=== PATIENT | male | born 1960 | race Caucasian/White ===

== ENCOUNTER → 2017-12-26 09:14 | Outpatient (CLI) | payer OTHER, SELFPAY ==
[2017-12-26 10:46] LABS: Cholesterol 204 mg/dL (140-199); HDL Cholesterol 49 mg/dL (40-60); LDL Cholesterol Calculated 124 mg/dL (<100); Triglycerides 156 mg/dL (35-150)
== END ==
PROVIDERS: PCP Physician Assistant; Visit Provider Physician Assistant
DX: E78.2 Mixed hyperlipidemia (principal); Z86.711 Personal history of pulmonary embolism; D68.51 Activated protein C resistance
CPT/HCPCS: 36415; 80061; 85610

== ENCOUNTER → 2018-01-02 07:38 | Outpatient (CLI) | payer OTHER, SELFPAY ==
[2018-01-02 08:01] LABS: INR 1.4 (0.9-1.3); Prothrombin Time 15.5 SECONDS (10.1-12.7)
== END ==
PROVIDERS: PCP Physician Assistant; Visit Provider Physician Assistant
DX: Z86.711 Personal history of pulmonary embolism (principal)
CPT/HCPCS: 36415; 85610

== ENCOUNTER → 2018-01-19 14:04 | Outpatient (CLI) | payer OTHER, SELFPAY ==
[2018-01-19 16:31] LABS: Prothrombin Time 54.9 SECONDS (10.1-12.7)
[2018-01-19 16:55] LABS: INR 4.9 (0.9-1.3)
== END ==
PROVIDERS: Family Provider Physician Assistant; PCP Physician Assistant; Visit Provider Physician Assistant
DX: D68.51 Activated protein C resistance (principal); Z86.711 Personal history of pulmonary embolism
CPT/HCPCS: 36415; 85610

== ENCOUNTER → 2018-01-26 07:37 | Outpatient (CLI) | payer OTHER, SELFPAY ==
[2018-01-26 09:31] LABS: INR 2.1 (0.9-1.3); Prothrombin Time 23.2 SECONDS (10.1-12.7)
== END ==
PROVIDERS: Family Provider Physician Assistant; PCP Physician Assistant; Visit Provider Physician Assistant
DX: Z86.711 Personal history of pulmonary embolism (principal); D68.51 Activated protein C resistance
CPT/HCPCS: 36415; 85610

== ENCOUNTER → 2018-03-09 12:04 | Outpatient (CLI) | payer OTHER, SELFPAY ==
[2018-03-09 12:40] LABS: INR 3.5 (0.9-1.3); Prothrombin Time 38.4 SECONDS (10.1-12.7)
== END ==
PROVIDERS: Family Provider Physician Assistant; PCP Physician Assistant; Visit Provider Physician Assistant
DX: D68.51 Activated protein C resistance (principal); Z86.711 Personal history of pulmonary embolism
CPT/HCPCS: 36415; 85610

== ENCOUNTER → 2018-04-03 07:11 | Outpatient (CLI) | payer OTHER, SELFPAY ==
[2018-04-03 08:20] LABS: INR 2.1 (0.9-1.3); Prothrombin Time 22.7 SECONDS (10.1-12.7)
== END ==
PROVIDERS: PCP Physician Assistant; Visit Provider Physician Assistant
DX: D68.51 Activated protein C resistance (principal); Z86.711 Personal history of pulmonary embolism
CPT/HCPCS: 36415; 85610

== ENCOUNTER → 2018-06-05 07:04 | Outpatient (CLI) | payer OTHER, SELFPAY ==
[2018-06-05 08:00] LABS: Cholesterol 191 mg/dL (140-199); HDL Cholesterol 47 mg/dL (40-60); LDL Cholesterol Calculated 101 mg/dL (<100); Triglycerides 214 mg/dL (35-150)
== END ==
PROVIDERS: PCP Physician Assistant; Visit Provider Physician Assistant
DX: Z12.5 Encounter for screening for malignant neoplasm of prostate (principal); E78.2 Mixed hyperlipidemia
CPT/HCPCS: 36415; 80061; G0103

== ENCOUNTER → 2018-07-10 14:27 | Outpatient (CLI) | payer OTHER, SELFPAY ==
[2018-07-10 15:25] LABS: INR 1.2 (0.9-1.3); Prothrombin Time 14.1 SECONDS (10.1-12.7)
== END ==
PROVIDERS: PCP Physician Assistant; Visit Provider Physician Assistant
DX: D68.51 Activated protein C resistance (principal); Z86.711 Personal history of pulmonary embolism
CPT/HCPCS: 36415; 85610

== ENCOUNTER → 2018-07-24 16:04 | Outpatient (CLI) | payer OTHER, SELFPAY ==
[2018-07-24 17:41] LABS: INR 1.5 (0.9-1.3); Prothrombin Time 17.4 SECONDS (10.1-12.7)
== END ==
PROVIDERS: PCP Physician Assistant; Visit Provider Physician Assistant
DX: D68.51 Activated protein C resistance (principal); Z86.711 Personal history of pulmonary embolism
CPT/HCPCS: 36415; 85610

== ENCOUNTER → 2018-07-31 07:18 | Outpatient (CLI) | payer OTHER, SELFPAY ==
[2018-07-31 09:22] LABS: Prothrombin Time 23.1 SECONDS (10.1-12.7)
== END ==
PROVIDERS: PCP Physician Assistant; Visit Provider Physician Assistant
DX: D68.51 Activated protein C resistance (principal); Z86.711 Personal history of pulmonary embolism
CPT/HCPCS: 36415; 85610

== ENCOUNTER → 2018-08-07 07:19 | Outpatient (CLI) | payer OTHER, SELFPAY ==
[2018-08-07 08:59] LABS: INR 2.3 (0.9-1.3); Prothrombin Time 26.9 SECONDS (10.1-12.7)
== END ==
PROVIDERS: PCP Physician Assistant; Visit Provider Physician Assistant
DX: D68.51 Activated protein C resistance (principal); Z86.711 Personal history of pulmonary embolism
CPT/HCPCS: 36415; 85610

== ENCOUNTER 2018-08-09 18:38 | Emergency (ER) | payer OTHER, SELFPAY ==
[2018-08-09 18:42] VITALS: BP 154/96; PULSE 85; RESP 14; TEMP 36.3; O2SAT 98
--- NOTE | 2018-08-09 18:46 | DI.RAD.S_ITS ---
PROCEDURE: XR ANKLE LT MIN 3V INDICATIONS: slip/fall, lt ankle pain/swelling, heard a pop TECHNIQUE: 3 views of the ankle were acquired. COMPARISON: None. FINDINGS: Bones: Lateral malleolus fracture at the level of the syndesmosis. There is also cortical irregularity at the tip of the medial malleolus. Plantar and posterior calcaneal spurring. Soft tissues: Overlying soft tissue swelling IMPRESSION: Lateral malleolar fracture with overlying soft tissue swelling. Possible fracture at the tip of the medial malleolus although technically indeterminate. Please correlate point tenderness. Dictated by: Rogerio Brennan M.D. on 08/09/2018 at 19:38 Approved by: Rogerio Brennan M.D. on 08/09/2018 at 19:40
--- NOTE | 2018-08-09 19:42 | ED.LOWEXIN ---
HPI - Extremity Injury (Lower) <Rivka Beatty PA-C - Last Filed: 08/09/18 22:02> General Chief Complaint: Extremity Injury, Lower Stated Complaint: slipped and fall left ankle heard a snap Time Seen by Provider: 08/09/18 19:04 Source: patient Mode of arrival: ambulatory Limitations: no limitations History of Present Illness HPI Narrative: this 57-year-old male was out walking this evening when he slipped on the ice and snow in his left foot bent back and behind him as he fell. He heard a snap and has had pain and swelling on the outside of the ankle since then. He states that he was able to get up and hobble home but has a lot of pain with weight-bearing. He denies any pain elsewhere in the leg. He denies any other injury, head contusion, neck pain, LOC, or any other complaints. He states he is not having any pain now that he is not weight-bearing. Related Data Home Medications Medication Instructions Recorded Confirmed Warfarin See Rx Instructions .ROUTE .COMPLEX 03/09/18 08/09/18 Previous Rx's Medication Instructions Recorded atorvastatin 40 mg PO HS #90 tab 10/03/17 losartan 50 mg-hydrochlorothiazide 1 tab PO DAILY #30 tab 04/27/18 12.5 mg tablet varicella-zoster glycoE [id number] 50 mcg IM ONCE #1 each 04/27/18 adj(PF) 50 mcg/0.5 mL IM susp, kit cyclobenzaprine 10 mg tablet 10 mg PO TID PRN #30 tab 08/09/18 Allergies Allergy/AdvReac Type Severity Reaction Status Date / Time lisinopril AdvReac Intermediate Cough Verified 08/09/18 09:38 Review of Systems <Rivka Beatty PA-C - Last Filed: 08/09/18 22:02> Review of Systems ROS Unobtainable: All systems reviewed & are unremarkable except as noted in HPI and below PFSH <Rivka Beatty PA-C - Last Filed: 08/09/18 22:02> Medical History Factor V Leiden (Chronic 2012) Hyperlipemia (Chronic Unknown) Obstructive sleep apnea (Chronic Unknown) Pulmonary embolism (Resolved 2013) Shoulder pain (Resolved 2014) Surgical History Hx of knee surgery (Resolved ~1974) Hx of shoulder surgery (Resolved 2014) Family History Mother Age: 82 Factor V Leiden carrier Sister Cerebrovascular accident (CVA), unspecified mechanism Anorexia nervosa with bulimia Father No problems noted. Social History Smoking Status: Never smoker second hand exposure: No alcohol intake: current (beer every other day.) substance use type: does not use Family History Mother Age: 82 Factor V Leiden carrier Sister Cerebrovascular accident (CVA), unspecified mechanism Anorexia nervosa with bulimia Father No problems noted. Social History Smoking Status: Never smoker second hand exposure: No alcohol intake: current (beer every other day.) substance use type: does not use Exam <Rivka Beatty PA-C - Last Filed: 08/09/18 22:02> Narrative Exam Narrative: GENERAL APPEARANCE: Patient sitting comfortably, in no distress. LUNGS: Clear to auscultation bilaterally. HEART: Rate and rhythm regular without murmur, normal S1 and S2, no S3 or S4. MUSCULOSKELETAL: Prominent left lateral ankle effusion. Tender over the distal fibula / proximal border of the lateral malleolus. No tenderness elsewhere over the ankle including the medial malleolus or distal tibia. No tenderness over the lower leg or knee. He has full range of motion of the knee, ankle, and toes without tenderness non weight-bearing. NEUROVASCULAR: Left foot is warm and pink, pedal pulses intact, sensation grossly intact Initial Vital Signs Initial Vital Signs: Vital Signs Temperature 97.4 F L 08/09/18 18:42 Pulse Rate 85 08/09/18 18:42 Respiratory Rate 14 08/09/18 18:42 Blood Pressure 154/96 H 08/09/18 18:42 Pulse Oximetry 98 08/09/18 18:42 <Enrico Elias DO - Last Filed: 08/09/18 22:31> Initial Vital Signs Initial Vital Signs: Vital Signs Temperature 97.4 F L 08/09/18 18:42 Pulse Rate 85 08/09/18 18:42 Respiratory Rate 14 08/09/18 18:42 Blood Pressure 154/96 H 08/09/18 18:42 Pulse Oximetry 98 08/09/18 18:42 Course <Rivka Beatty PA-C - Last Filed: 08/09/18 22:02> Additional Information: Patient reported feeling comfortable and did not need pain medication while here. spoke with Dr. Hays, on-call for Orthopedic who advised that this could be splinted and patient can follow-up in office. A stirrup with posterior reinforcement was placed by nursing. On splint check patient reported the splint felt comfortable. Toes on left foot were warm and pink with brisk cap refill and sensation grossly intact following placement. Orders Ordered: ED Orders 08/09/18 18:46 XR ankle LT min 3V Stat Discontinued Medications Hydrocodone Bitart/Acetaminophen (Vicodin Prepack) 1 bottle MISC SEEINSTR ONE Stop: 08/09/18 20:21 Last Admin: 08/09/18 20:30 Dose: 1 bottle Vital Signs - 8 hr 08/09/18 18:42 08/09/18 21:20 Temperature 97.4 F L Pulse Rate 85 82 Respiratory Rate 14 14 Blood Pressure 154/96 H 150/90 H Pulse Oximetry 98 99 <Enrico Elias DO - Last Filed: 08/09/18 22:31> Orders Ordered: ED Orders 08/09/18 18:46 XR ankle LT min 3V Stat Discontinued Medications Hydrocodone Bitart/Acetaminophen (Vicodin Prepack) 1 bottle MISC SEEINSTR ONE Stop: 08/09/18 20:21 Last Admin: 08/09/18 20:30 Dose: 1 bottle Vital Signs - 8 hr 08/09/18 18:42 08/09/18 21:20 Temperature 97.4 F L Pulse Rate 85 82 Respiratory Rate 14 14 Blood Pressure 154/96 H 150/90 H Pulse Oximetry 98 99 MDM - Extremity Injury (Lower) <Rivka Beatty PA-C - Last Filed: 08/09/18 22:02> Imaging Data ankle: Radiologist's impression: [address] [address] XRay Report Signed Patient: Enrico Hernandez [facility]#: [id number] : 1Acct:[id number] Age/Sex: 57 / MDate of Service: 08/09/18 Loc: ED Accession Number: [id number] Procedure: XR ankle LT min 3V Ordering Provider: Enrico Elias D.O. PROCEDURE: XR ANKLE LT MIN 3V INDICATIONS: slip/fall, lt ankle pain/swelling, heard a pop TECHNIQUE: 3 views of the ankle were acquired. COMPARISON: None. FINDINGS: Bones: Lateral malleolus fracture at the level of the syndesmosis. There is also cortical irregularity at the tip of the medial malleolus. Plantar and posterior calcaneal spurring. Soft tissues: Overlying soft tissue swelling IMPRESSION: Lateral malleolar fracture with overlying soft tissue swelling. Possible fracture at the tip of the medial malleolus although technically indeterminate. Please correlate point tenderness. Dictated by: Rogerio Brennan M.D. on 08/09/2018 at 19:38 Approved by: Rogerio Brennan M.D. on 08/09/2018 at 19:40 Discharge Plan Departure Patient Disposition: Home Clinical Impression: Closed left fibular fracture Qualifiers: Encounter type: initial encounter Fibula location: distal Fracture morphology: unspecified fracture morphology Qualified Code(s): S82.832A - Other fracture of upper and lower end of left fibula, initial encounter for closed fracture Discharge Date/Time: 08/09/18 21:22 Interventions: ED Discharge Assessment Last Done: 08/09/18 21:20 Instructions: DI for Malleolar Fracture Activity Restrictions/Additional Instructions: You have a fracture at the border of the little bone on the outside of your lower leg ( at the round bone called the malleolus and a little bone that connects to your lower leg called the fibula ). These will often heal with immobilization, however you need to follow up with Orthopedics this week to re-evaluate and repeat x-ray to get a look at the stability of the bone. There was also question of whether you might have a small fracture on the other side of the ankle, but on exam you do not have any tenderness or swelling there. We have immobilized that area as well to protect this until repeat x-rays are done. Please keep the splint on at all times and avoid weight-bearing (use the crutches ). We have given you a few hydrocodone /acetaminophen which you can take this evening and tomorrow if you need. Remember they can make you sleepy. You can change to plain Tylenol and ibuprofen or Aleve when feeling better. Please call schedule [facility] tomorrow morning and let them know that you were seen in the emergency room this evening with a fracture, and that Dr. Moreno who was on-call reviewed the x-rays and wants you to be seen there for follow-up this week. Prescriptions: No Action Warfarin See Patient Comments .ROUTE .COMPLEX RF: 0 losartan-hydrochlorothiazide 50-12.5 mg tablet 1 tab PO DAILY Qty: 30 RF: 3 varicella-zoster [id number]-AS01B (PF) [Shingrix (PF)] 50 mcg/0.5 mL suspension for reconstitution 50 mcg IM ONCE Qty: 1 RF: 1 cyclobenzaprine 10 mg tablet 10 mg PO TID PRN (Reason: muscle spasm) Qty: 30 RF: 0 atorvastatin 40 MG tablet 40 mg PO HS Qty: 90 RF: 3 Referrals: Lara Hays MD [Physician] - Jessica Madrid PA-C [Primary Care Provider] - <Enrico Elias DO - Last Filed: 08/09/18 22:31> Cosign ED Attending Naz Attestation: I was available for consultation during this patient's emergency department encounter
[2018-08-09] MEDS: HYDROCODONE/ACET 5/325 PREPACK 1 BOTTLE MISC (20:30)
--- NOTE | 2018-08-09 21:16 | PC.NURSE ---
posterior leg with ankle stirrup. Inspected by [facility] and approved. Positive cms. Pt repeated teaching on splint adjustment if perfustion to his toes is compromised.
--- NOTE | 2018-08-09 21:19 | PC.NURSE ---
Crutch training, pt able to repeat in his own words proper crutch use. Pt demonstrated proper crutch use. Pt ambulated to the restroom and back using crutches properly.
[2018-08-09 21:20] VITALS: BP 150/90; PULSE 82; RESP 14; O2SAT 99
== END 2018-08-09 21:22 | disposition home or self-care (01) ==
PROVIDERS: Emergency Provider Internal Medicine; PCP Physician Assistant
DX: S82.832A Other fracture of upper and lower end of left fibula, initial encounter for closed fracture (principal); W01.0XXA Fall on same level from slipping, tripping and stumbling without subsequent striking against object, initial encounter
CPT/HCPCS: 73610; 99282; 99283

== ENCOUNTER → 2018-10-17 09:40 | Outpatient (CLI) | payer OTHER, SELFPAY ==
--- NOTE | 2018-10-17 09:41 | DI.MRI.S_ITS ---
PROCEDURE: MR LUMBAR SPINE WO CON INDICATIONS: Low back pain w/possible radiculopathy R leg TECHNIQUE: Noncontrast sagittal T1 spin echo and T2 fast echo, sagittal STIR, axial T1 and T2 fast spin echo through the lumbar spine. In cases with scoliosis, additional coronal T2 fast spin echo may be performed. COMPARISON: None. FINDINGS: Image quality: Excellent. Alignment and Curvature: There is normal bony alignment. Bone Marrow: Marrow is of normal overall signal. No acute vertebral body compression fractures. Spinal Cord: Conus medullaris terminates at the L1 level. Visualized cord demonstrates normal signal and size. Paraspinous Soft Tissues: No paravertebral masses. T12-L1: No canal stenosis or foraminal stenosis. L1-L2: There is a large disc fragment which has migrated superior to the disc space. Increased signal suggests probable acuity. It is present in the right lateral recess, indenting on the right aspect of the thecal sac, and extending into the right foramen obliterating the right L1 nerve root in the right foramen. The disc fragment measures approximately 1.6 x 1.6 x 0.8 cm. The left foramen is patent. L2-L3: Left paracentral annulus tear associated with mild left paracentral disc protrusion mildly indenting on the thecal sac. The foramina are patent. Bilateral facet joint fluid. L3-L4: No canal stenosis or foraminal stenosis. Bilateral facet joint fluid. L4-L5: Normal appearance. Probable annulus tear. Minimal central posterior disc protrusion. No canal stenosis or foraminal stenosis. Mild facet joint hypertrophy. L5-S1: Normal appearance. IMPRESSION: 1. A large disc fragment has migrated superior to the L1-L2 disc, present in the right lateral recess and right foramen. It obliterates the right L1 nerve root in the right foramen. 2. At L2-L3, there is a left paracentral annulus tear associated with mild left paracentral disc protrusion. 3. There is probable annulus tear associated with minimal central posterior disc protrusion at L4-L5. 4. Multilevel facet arthropathy. Dictated by: Natalio Bills M.D. on 10/18/2018 at 11:04 Approved by: Natalio Bills M.D. on 10/18/2018 at 11:13
== END ==
PROVIDERS: PCP Physician Assistant; Visit Provider Orthopaedic Surgery Orthopaedic Surgery of the Spine
DX: M51.26 Other intervertebral disc displacement, lumbar region (principal); M47.816 Spondylosis without myelopathy or radiculopathy, lumbar region
CPT/HCPCS: 72148

== ENCOUNTER → 2018-12-11 07:21 | Outpatient (CLI) | payer OTHER, SELFPAY ==
[2018-12-11 08:29] LABS: INR 1.6 (0.9-1.3); Prothrombin Time 19.1 SECONDS (10.1-12.7)
[2018-12-11 09:04] LABS: Alanine Aminotransferase 62 IU/L (21-72); Albumin 4.9 g/dL (3.5-5.0); Albumin Globulin Ratio 1.4 (1.0-2.8); Alkaline Phosphatase 77 U/L (38-126); Aspartate Aminotransferase 38 IU/L (17-59); BUN Creatinine Ratio 14.4 (6-22); Bilirubin Total 1.3 mg/dL (0.2-1.3); Blood Urea Nitrogen 13 mg/dL (9-20); Calcium 9.8 mg/dL (8.4-10.2); Carbon Dioxide 27 mmol/L (22-32); Chloride 97 mmol/L (98-107); Cholesterol 213 mg/dL (140-199); Estimated Glomerular Filt Rate > 60.0 mL/min (>60); Globulin 3.5 g/dL (1.7-4.1); Glucose 112 mg/dL (70-100); HDL Cholesterol 37 mg/dL (40-60); HEMOLYSIS < 15 (0-50); LDL Cholesterol Calculated 100 mg/dL (<100); Potassium 4.4 mmol/L (3.4-5.1); Sodium 135 mmol/L (137-145); Total Protein 8.4 g/dL (6.3-8.2); Triglycerides 378 mg/dL (35-150)
[2018-12-11 10:02] LABS: Creatinine Urine Random 106.2 mg/dL
[2018-12-11 10:07] LABS: Microalbumi Creatinin Ratio Ur 33.8 ug/mg CR (<30); Microalbumin Urine Random 3.6 mg/dL (0-1.6)
[2018-12-15 18:01] LABS: Fecal Immunochemical Test NOT DETECTED (NOT DETECTED)
== END ==
PROVIDERS: PCP Physician Assistant; Visit Provider Physician Assistant
DX: E78.2 Mixed hyperlipidemia (principal); I10 Essential (primary) hypertension; D68.51 Activated protein C resistance; Z12.11 Encounter for screening for malignant neoplasm of colon
CPT/HCPCS: 36415; 80053; 80061; 82043; 82274; 82570; 85610

== ENCOUNTER → 2019-01-29 06:58 | Outpatient (CLI) | payer OTHER, SELFPAY ==
[2019-01-29 07:57] LABS: INR 1.9 (0.9-1.3); Prothrombin Time 21.7 SECONDS (10.1-12.7)
[2019-01-29 08:15] LABS: Alanine Aminotransferase 55 IU/L (21-72); Albumin 4.7 g/dL (3.5-5.0); Albumin Globulin Ratio 1.4 (1.0-2.8); Alkaline Phosphatase 69 U/L (38-126); Aspartate Aminotransferase 41 IU/L (17-59); BUN Creatinine Ratio 17.5 (6-22); Bilirubin Total 1.2 mg/dL (0.2-1.3); Blood Urea Nitrogen 14 mg/dL (9-20); Calcium 9.5 mg/dL (8.4-10.2); Carbon Dioxide 25 mmol/L (22-32); Chloride 96 mmol/L (98-107); Cholesterol 183 mg/dL (140-199); Estimated Glomerular Filt Rate > 60.0 mL/min (>60); Globulin 3.3 g/dL (1.7-4.1); Glucose 109 mg/dL (70-100); HDL Cholesterol 42 mg/dL (40-60); HEMOLYSIS < 15 (0-50); LDL Cholesterol Calculated 100 mg/dL (<100); Potassium 3.8 mmol/L (3.4-5.1); Sodium 131 mmol/L (137-145); Triglycerides 207 mg/dL (35-150)
[2019-01-29 08:26] LABS: Creatinine Urine Random 107.1 mg/dL
[2019-01-29 08:32] LABS: Microalbumin Urine Random 1.4 mg/dL (0-1.6)
== END ==
PROVIDERS: PCP Physician Assistant; Visit Provider Physician Assistant
DX: E78.2 Mixed hyperlipidemia (principal); I10 Essential (primary) hypertension; D68.51 Activated protein C resistance; Z86.711 Personal history of pulmonary embolism
CPT/HCPCS: 36415; 80053; 80061; 82043; 82570; 85610

== ENCOUNTER → 2019-02-05 12:05 | Outpatient (CLI) | payer OTHER, SELFPAY | PROVIDERS: PCP Physician Assistant; Visit Provider Physician Assistant | DX: D68.51 Activated protein C resistance (principal) ==

== ENCOUNTER → 2019-02-12 15:44 | Outpatient (CLI) | payer OTHER, SELFPAY ==
--- NOTE | 2019-02-12 | DI.MRI.S_ITS ---
PROCEDURE: MR LUMBAR SPINE WO CON INDICATIONS: Low back and right leg radicular pain TECHNIQUE: Noncontrast sagittal T1 spin echo and T2 fast echo, sagittal STIR, axial T1 and T2 fast spin echo through the lumbar spine. In cases with scoliosis, additional coronal T2 fast spin echo may be performed. COMPARISON: [facility], MR, MR LUMBAR SPINE WO CON, 10/17/2018, 9:46. FINDINGS: Image quality: Excellent. Alignment and Curvature: There is mild retrolisthesis at L2-L3 and L3-L4, with minimal retrolisthesis at L4-L5. Bone Marrow: Marrow is of normal overall signal. No acute vertebral body compression fractures. Spinal Cord: Conus medullaris terminates at the L1 level. Visualized cord demonstrates normal signal and size. Incidental note is made of a fatty filum terminale, without findings of cord tethering. Paraspinous Soft Tissues: No paravertebral masses. T12-L1: Normal appearance. L1-L2: The disc height and disc signal are relatively well-preserved. There is a disc extrusion seen involving the right lateral recess, with superior migration of disc material. This disc extrusion is overall minimally smaller than on the prior examination. Mild central canal narrowing is seen at the inferior aspect of L1. There is mild, stable right-sided neural foraminal narrowing. The left neural foramen is patent. L2-L3: Mild loss of disc height is seen. Loss of disc signal is seen. Moderate generalized disc bulge is seen. There is a mild central disc protrusion seen. Mild facet joint hypertrophy is seen. Moderate bilateral neural foraminal narrowing is seen. Moderate central canal narrowing is seen. These imaging findings are unchanged compared to the prior images. L3-L4: The disc height is well-preserved. Loss of disc signal is seen at this level. Moderate generalized disc bulge is seen. [id number] facet hypertrophy is seen. There is at least moderate left-sided and moderate to severe right-sided neural foraminal narrowing seen. There is a degree of compression seen upon the exiting nerve roots. Mild to moderate central canal narrowing is seen. When comparison is made with the prior examination, these findings are similar. L4-L5: The disc height is well-preserved. Loss of disc signal is seen at this level. Moderate generalized disc bulge is seen. There is a focal annular fissure seen posteriorly. Moderate facet joint hypertrophy is seen. Minimal to mild bilateral neural foraminal narrowing is seen at moderate central canal narrowing is seen. No significant change when compared to the prior images. L5-S1: Mild loss of disc signal is seen. The disc height is well-preserved. Mild generalized disc bulge is seen. Mild facet joint hypertrophy is seen. No significant neural foraminal or central canal narrowing can be seen. IMPRESSION: There is again seen a disc extrusion on the right at L1-L2, which is minimally improved compared to the prior examination. Multiple levels of degenerative change are seen, which are similar to the prior MRI. Dictated by: Karan Patten M.D. on 02/12/2019 at 15:35 Approved by: Karan Patten M.D. on 02/12/2019 at 15:42
== END ==
PROVIDERS: PCP Physician Assistant; Visit Provider Physician Assistant Surgical
DX: M47.26 Other spondylosis with radiculopathy, lumbar region (principal); M47.27 Other spondylosis with radiculopathy, lumbosacral region; M51.16 Intervertebral disc disorders with radiculopathy, lumbar region
CPT/HCPCS: 72148

== ENCOUNTER → 2019-05-14 07:18 | Outpatient (CLI) | payer OTHER, SELFPAY ==
[2019-05-14 09:11] LABS: INR 2.5 (0.9-1.3); Prothrombin Time 29.7 SECONDS (10.1-12.7)
== END ==
PROVIDERS: PCP Physician Assistant; Visit Provider Physician Assistant
DX: Z86.711 Personal history of pulmonary embolism (principal); D68.51 Activated protein C resistance
CPT/HCPCS: 36415; 85610

== ENCOUNTER → 2019-08-13 07:09 | Outpatient (CLI) | payer OTHER, SELFPAY ==
[2019-08-13 08:29] LABS: Alanine Aminotransferase 56 IU/L (<50); Albumin 4.8 g/dL (3.5-5.0); Albumin Globulin Ratio 1.4 (1.0-2.8); Alkaline Phosphatase 67 U/L (38-126); Aspartate Aminotransferase 44 IU/L (17-59); BUN Creatinine Ratio 13.3 (6-22); Bilirubin Total 0.5 mg/dL (0.2-1.3); Blood Urea Nitrogen 12 mg/dL (9-20); Calcium 9.6 mg/dL (8.4-10.2); Carbon Dioxide 26 mmol/L (22-32); Chloride 103 mmol/L (98-107); Cholesterol 170 mg/dL (140-199); Estimated Glomerular Filt Rate > 60.0 mL/min (>60); Globulin 3.4 g/dL (1.7-4.1); Glucose 117 mg/dL (70-100); HDL Cholesterol 40 mg/dL (40-60); HEMOLYSIS < 15 (0-50); LDL Cholesterol Calculated 87 mg/dL (<100); Potassium 4.1 mmol/L (3.4-5.1); Sodium 139 mmol/L (137-145); Total Protein 8.2 g/dL (6.3-8.2); Triglycerides 213 mg/dL (35-150)
[2019-08-13 08:56] LABS: Creatinine Urine Random 117.6 mg/dL
[2019-08-13 09:00] LABS: Microalbumi Creatinin Ratio Ur 40.8 ug/mg CR (<30); Microalbumin Urine Random 4.8 mg/dL (0-1.6)
== END ==
PROVIDERS: PCP Physician Assistant; Referring Provider Physician Assistant; Visit Provider Physician Assistant
DX: E78.2 Mixed hyperlipidemia (principal); I10 Essential (primary) hypertension
CPT/HCPCS: 36415; 80053; 80061; 82043; 82570

== ENCOUNTER → 2020-05-19 07:15 | Outpatient (CLI) | payer OTHER, SELFPAY ==
[2020-05-19 08:23] LABS: Add Manual Diff / Slide Review NO; Basophils Absolute Auto 0 /uL (0-100); Basophils Percent Auto 0.7 % (0-2); Eosinophils Absolute Auto 100 /uL (0-450); Eosinophils Percent Auto 1.6 % (2-4); Hematocrit 40.2 % (41-53); Lymphocytes Absolute Auto 1300 /uL (1100-4500); Lymphocytes Percent Auto 21.2 % (25-40); Mean Corpuscular HGB Conc 34.8 % (30-36); Mean Corpuscular Volume 94.7 fL (80-100); Monocytes Absolute Auto 600 /uL (0-900); Monocytes Percent Auto 10.4 % (3-14); Neutrophils Absolute Auto 4000 /uL (1500-7000); Neutrophils Percent Auto 66.1 % (50-75); Platelet Count 238 X10^3/uL (150-400); Red Blood Cell Count 4.25 X10^6/uL (4.5-5.9)
[2020-05-19 08:52] LABS: Alanine Aminotransferase 62 IU/L (<50); Albumin 4.5 g/dL (3.5-5.0); Albumin Globulin Ratio 1.3 (1.0-2.8); Alkaline Phosphatase 72 U/L (38-126); Aspartate Aminotransferase 54 IU/L (17-59); BUN Creatinine Ratio 14.5 (6-22); Bilirubin Total 1.3 mg/dL (0.2-1.3); Blood Urea Nitrogen 12 mg/dL (9-20); Calcium 9.6 mg/dL (8.4-10.2); Carbon Dioxide 30 mmol/L (22-32); Chloride 99 mmol/L (98-107); Cholesterol 171 mg/dL (140-199); Estimated Glomerular Filt Rate > 60.0 mL/min (>60); Globulin 3.4 g/dL (1.7-4.1); Glucose 107 mg/dL (70-100); HDL Cholesterol 34 mg/dL (40-60); HEMOLYSIS < 15 (0-50); LDL Cholesterol Calculated 81 mg/dL (<100); Potassium 4.3 mmol/L (3.4-5.1); Sodium 136 mmol/L (137-145); Total Protein 7.9 g/dL (6.3-8.2); Triglycerides 282 mg/dL (35-150)
[2020-05-19 09:23] LABS: Prostate Specific Antigen Scrn 0.791 ng/mL (0.1-4.0)
== END ==
PROVIDERS: PCP Internal Medicine; Referring Provider Internal Medicine; Visit Provider Internal Medicine
DX: E78.2 Mixed hyperlipidemia (principal); Z79.01 Long term (current) use of anticoagulants; Z86.711 Personal history of pulmonary embolism; Z12.5 Encounter for screening for malignant neoplasm of prostate
CPT/HCPCS: 36415; 80053; 80061; 85025; G0103

== ENCOUNTER → 2020-07-21 14:21 | Outpatient (CLI) | payer OTHER, SELFPAY ==
--- NOTE | 2020-07-21 14:24 | DI.RAD.S_ITS ---
PROCEDURE: XR HIP W PEL IF DONE RT 2V INDICATIONS: right hip pain TECHNIQUE: AP pelvis with lateral view(s) of the right hip(s). COMPARISON: None. FINDINGS: Bones: No fractures or dislocations. Pelvic ring appears intact. No suspicious bony lesions. Soft tissues: The visualized bowel gas pattern is normal. No suspicious soft tissue calcifications. IMPRESSION: No trauma found. Dictated by: South Olson M.D. on 07/21/2020 at 15:53 Approved by: South Olson M.D. on 07/21/2020 at 15:54
== END ==
PROVIDERS: PCP Internal Medicine; Referring Provider Registered Nurse; Visit Provider Registered Nurse
DX: M25.551 Pain in right hip (principal)
CPT/HCPCS: 73502

== ENCOUNTER → 2020-09-14 16:00 | Outpatient (CLI) | payer OTHER, SELFPAY ==
[2020-09-14] MEDS: COVID-19 VACC #1, MRNA(MOD) 100 MCG/0.5 ML VIAL IM (16:07)
== END ==
PROVIDERS: PCP Internal Medicine; Visit Provider Internal Medicine
DX: Z23 Encounter for immunization (principal)
CPT/HCPCS: 0011A; 91301

== ENCOUNTER → 2020-10-12 14:11 | Outpatient (CLI) | payer OTHER, SELFPAY ==
[2020-10-12] MEDS: COVID-19 VACC #2, MRNA(MOD) 100 MCG/0.5 ML VIAL IM (14:20)
== END ==
PROVIDERS: PCP Internal Medicine; Visit Provider Internal Medicine
DX: Z23 Encounter for immunization (principal)
CPT/HCPCS: 0012A; 91301

== ENCOUNTER → 2020-10-20 14:32 | Outpatient (CLI) | payer OTHER, SELFPAY ==
[2020-10-20 15:36] LABS: INR 1.5 (0.9-1.3); Prothrombin Time 16.7 SECONDS (10.1-12.7)
== END ==
PROVIDERS: PCP Internal Medicine; Referring Provider Internal Medicine; Visit Provider Internal Medicine
DX: D68.51 Activated protein C resistance (principal); Z79.01 Long term (current) use of anticoagulants
CPT/HCPCS: 36415; 85610

== ENCOUNTER → 2020-11-29 15:25 | Outpatient (CLI) | payer OTHER, SELFPAY ==
[2020-11-29 16:49] LABS: INR 2.7 (0.9-1.3); Prothrombin Time 30.9 SECONDS (10.1-12.7)
== END ==
PROVIDERS: PCP Internal Medicine; Referring Provider Internal Medicine; Visit Provider Internal Medicine
DX: D68.51 Activated protein C resistance (principal); Z79.01 Long term (current) use of anticoagulants
CPT/HCPCS: 36415; 85610

== ENCOUNTER → 2020-12-08 15:43 | Outpatient (CLI) | payer OTHER, SELFPAY ==
[2020-12-11 09:41] LABS: Fecal Immunochemical Test Negative (Negative)
== END ==
PROVIDERS: PCP Internal Medicine; Referring Provider Internal Medicine; Visit Provider Internal Medicine
DX: Z12.11 Encounter for screening for malignant neoplasm of colon (principal)
CPT/HCPCS: 82274

== ENCOUNTER → 2021-04-12 15:47 | Outpatient (CLI) | payer OTHER, SELFPAY ==
[2021-04-12 16:20] LABS: INR 2.8 (0.9-1.3); Prothrombin Time 32.4 SECONDS (10.1-12.7)
== END ==
PROVIDERS: PCP Internal Medicine; Referring Provider Internal Medicine; Visit Provider Internal Medicine
DX: D68.51 Activated protein C resistance (principal); Z79.01 Long term (current) use of anticoagulants
CPT/HCPCS: 36415; 85610

== ENCOUNTER → 2021-08-01 15:33 | Outpatient (CLI) | payer OTHER, SELFPAY ==
[2021-08-01 16:16] LABS: INR 2.2 (0.9-1.3); Prothrombin Time 25.1 SECONDS (10.1-12.7)
== END ==
PROVIDERS: PCP Internal Medicine; Referring Provider Internal Medicine; Visit Provider Internal Medicine
DX: Z79.01 Long term (current) use of anticoagulants (principal)
CPT/HCPCS: 36415; 85610

== ENCOUNTER → 2021-10-08 15:53 | Outpatient (CLI) | payer OTHER, SELFPAY ==
[2021-10-08 16:35] LABS: INR 3.1 (0.9-1.3); Prothrombin Time 35.8 SECONDS (10.1-12.7)
== END ==
PROVIDERS: PCP Internal Medicine; Referring Provider Internal Medicine; Visit Provider Internal Medicine
DX: Z79.01 Long term (current) use of anticoagulants (principal)
CPT/HCPCS: 36415; 85610

== ENCOUNTER → 2021-11-16 07:19 | Outpatient (CLI) | payer OTHER, SELFPAY ==
[2021-11-16 08:31] LABS: INR 2.3 (0.9-1.3); Prothrombin Time 25.8 SECONDS (10.1-12.7)
== END ==
PROVIDERS: PCP Internal Medicine; Referring Provider Internal Medicine; Visit Provider Internal Medicine
DX: Z79.01 Long term (current) use of anticoagulants (principal)
CPT/HCPCS: 36415; 85610

== ENCOUNTER → 2022-01-11 06:55 | Outpatient (CLI) | payer OTHER, SELFPAY ==
[2022-01-11 08:44] LABS: Add Manual Diff / Slide Review NO; Basophils Absolute Auto 0 /uL (0-100); Basophils Percent Auto 0.6 % (0-2); Eosinophils Absolute Auto 200 /uL (0-450); Eosinophils Percent Auto 2.5 % (2-4); Hematocrit 39.1 % (41-53); Hemoglobin 13.9 g/dL (13.5-17.5); Lymphocytes Absolute Auto 1500 /uL (1100-4500); Mean Corpuscular HGB Conc 35.4 % (30-36); Mean Corpuscular Hemoglobin 33.1 PG (26-34); Mean Corpuscular Volume 93.5 fL (80-100); Monocytes Absolute Auto 600 /uL (0-900); Monocytes Percent Auto 9.6 % (3-14); Neutrophils Absolute Auto 3900 /uL (1500-7000); Neutrophils Percent Auto 63.3 % (50-75); Platelet Count 211 X10^3/uL (150-400); Red Blood Cell Count 4.19 X10^6/uL (4.5-5.9); Red Cell Distribution Width 13.1 % (11.6-14.8); White Blood Cell Count 6.1 X10^3/uL (4.5-11.0)
[2022-01-11 08:56] LABS: INR 2.8 (0.9-1.3); Prothrombin Time 32.3 SECONDS (10.1-12.7)
[2022-01-11 09:04] LABS: Alanine Aminotransferase 34 IU/L (<50); Albumin 4.8 g/dL (3.5-5.0); Albumin Globulin Ratio 1.6 (1.0-2.8); Alkaline Phosphatase 69 U/L (38-126); Aspartate Aminotransferase 34 IU/L (17-59); BUN Creatinine Ratio 14.7 (6-22); Bilirubin Total 1.2 mg/dL (0.2-1.3); Blood Urea Nitrogen 14 mg/dL (9-20); Calcium 9.3 mg/dL (8.4-10.2); Carbon Dioxide 25 mmol/L (22-32); Chloride 97 mmol/L (98-107); Cholesterol 178 mg/dL (140-199); Estimated Glomerular Filt Rate > 60 mL/min (>60); Glucose 110 mg/dL (80-110); HDL Cholesterol 36 mg/dL (40-60); HEMOLYSIS < 15 (0-50); LDL Cholesterol Calculated 82 mg/dL (<100); Potassium 3.8 mmol/L (3.4-5.1); Sodium 132 mmol/L (137-145); Total Protein 7.8 g/dL (6.3-8.2); Triglycerides 301 mg/dL (35-150)
[2022-01-11 09:34] LABS: Prostate Specific Antigen Scrn 0.773 ng/mL (0.1-4.0)
== END ==
PROVIDERS: PCP Internal Medicine; Referring Provider Internal Medicine; Visit Provider Internal Medicine
DX: D68.51 Activated protein C resistance (principal); E78.2 Mixed hyperlipidemia; I10 Essential (primary) hypertension; Z79.01 Long term (current) use of anticoagulants; Z12.5 Encounter for screening for malignant neoplasm of prostate
CPT/HCPCS: 36415; 80053; 80061; 85025; 85610; G0103

== ENCOUNTER → 2022-04-02 15:28 | Outpatient (CLI) | payer OTHER, SELFPAY ==
[2022-04-02 16:37] LABS: INR 4.3 (0.9-1.3); Prothrombin Time 50.1 SECONDS (10.1-12.7)
== END ==
PROVIDERS: PCP Internal Medicine; Referring Provider Internal Medicine; Visit Provider Internal Medicine
DX: D68.51 Activated protein C resistance (principal); Z79.01 Long term (current) use of anticoagulants; Z86.711 Personal history of pulmonary embolism
CPT/HCPCS: 36415; 85610

== ENCOUNTER → 2022-04-29 14:39 | Outpatient (CLI) | payer OTHER, SELFPAY ==
[2022-05-01 13:32] LABS: Fecal Immunochemical Test Negative (Negative)
== END ==
PROVIDERS: PCP Internal Medicine; Referring Provider Internal Medicine; Visit Provider Internal Medicine
DX: Z12.11 Encounter for screening for malignant neoplasm of colon (principal)
CPT/HCPCS: 82274

== ENCOUNTER → 2022-07-09 14:39 | Outpatient (CLI) | payer MEDICARE, SELFPAY ==
[2022-07-09 15:51] LABS: INR 2.4 (0.9-1.3); Prothrombin Time 27.8 SECONDS (10.1-12.7)
== END ==
PROVIDERS: PCP Internal Medicine; Referring Provider Internal Medicine; Visit Provider Internal Medicine
DX: D68.51 Activated protein C resistance (principal); Z79.01 Long term (current) use of anticoagulants; Z86.711 Personal history of pulmonary embolism
CPT/HCPCS: 36415; 85610

== ENCOUNTER → 2022-08-27 15:39 | Outpatient (CLI) | payer MEDICARE, SELFPAY ==
[2022-08-27 16:34] LABS: INR 3.5 (0.9-1.3); Prothrombin Time 41.2 SECONDS (10.1-12.7)
== END ==
PROVIDERS: PCP Internal Medicine; Referring Provider Internal Medicine; Visit Provider Internal Medicine
DX: D68.51 Activated protein C resistance (principal); Z79.01 Long term (current) use of anticoagulants; Z86.711 Personal history of pulmonary embolism
CPT/HCPCS: 36415; 85610

== ENCOUNTER → 2022-08-30 14:32 | Outpatient (CLI) | payer OTHER, SELFPAY ==
[2022-08-30 16:02] LABS: INR 2.9 (0.9-1.3); Prothrombin Time 33.8 SECONDS (10.1-12.7)
== END ==
PROVIDERS: PCP Internal Medicine; Referring Provider Internal Medicine; Visit Provider Internal Medicine
DX: D68.51 Activated protein C resistance (principal)
CPT/HCPCS: 36415; 85610

== ENCOUNTER → 2022-09-30 14:49 | Outpatient (CLI) | payer OTHER, SELFPAY ==
[2022-09-30 15:31] LABS: INR 3.3 (0.9-1.3)
== END ==
PROVIDERS: PCP Internal Medicine; Referring Provider Internal Medicine; Visit Provider Internal Medicine
DX: I82.409 Acute embolism and thrombosis of unspecified deep veins of unspecified lower extremity (principal)
CPT/HCPCS: 36415; 85610

== ENCOUNTER → 2022-10-30 15:07 | Outpatient (CLI) | payer OTHER, SELFPAY ==
[2022-10-30 15:31] LABS: INR 1.5 (0.9-1.3); Prothrombin Time 17.5 SECONDS (10.1-12.7)
== END ==
PROVIDERS: PCP Internal Medicine; Referring Provider Internal Medicine; Visit Provider Internal Medicine
DX: I82.409 Acute embolism and thrombosis of unspecified deep veins of unspecified lower extremity (principal)
CPT/HCPCS: 36415; 85610

== ENCOUNTER → 2023-02-21 06:58 | Outpatient (CLI) | payer OTHER, SELFPAY ==
[2023-02-21 08:31] LABS: Add Manual Diff / Slide Review NO; Basophils Absolute Auto 0 /uL (0-100); Basophils Percent Auto 0.6 % (0-2); Eosinophils Absolute Auto 100 /uL (0-450); Eosinophils Percent Auto 1.5 % (2-4); Hematocrit 39.3 % (41-53); Hemoglobin 14.2 g/dL (13.5-17.5); Lymphocytes Absolute Auto 1100 /uL (1100-4500); Mean Corpuscular HGB Conc 36.1 % (30-36); Mean Corpuscular Hemoglobin 33.5 PG (26-34); Mean Corpuscular Volume 92.8 fL (80-100); Monocytes Absolute Auto 500 /uL (0-900); Monocytes Percent Auto 8.2 % (3-14); Neutrophils Absolute Auto 4200 /uL (1500-7000); Neutrophils Percent Auto 70.7 % (50-75); Platelet Count 257 X10^3/uL (150-400); Red Blood Cell Count 4.24 X10^6/uL (4.5-5.9); Red Cell Distribution Width 12.9 % (11.6-14.8); White Blood Cell Count 5.9 X10^3/uL (4.5-11.0)
[2023-02-21 08:52] LABS: INR 3.8 (0.9-1.3); Prothrombin Time 44.2 SECONDS (10.1-12.7)
[2023-02-21 08:59] LABS: Alanine Aminotransferase 31 IU/L (<50); Albumin 4.5 g/dL (3.5-5.0); Albumin Globulin Ratio 1.4 (1.0-2.8); Alkaline Phosphatase 76 U/L (38-126); Aspartate Aminotransferase 35 IU/L (17-59); BUN Creatinine Ratio 10.1 (6-22); Bilirubin Total 1.7 mg/dL (0.2-1.3); Blood Urea Nitrogen 9 mg/dL (9-20); Calcium 9.4 mg/dL (8.4-10.2); Carbon Dioxide 25 mmol/L (22-32); Chloride 99 mmol/L (98-107); Cholesterol 182 mg/dL (140-199); Estimated Glomerular Filt Rate > 60 mL/min (>60); Globulin 3.2 g/dL (1.7-4.1); Glucose 110 mg/dL (80-110); HDL Cholesterol 43 mg/dL (40-60); HEMOLYSIS < 15 (0-50); LDL Cholesterol Calculated 67 mg/dL (<100); Potassium 3.5 mmol/L (3.4-5.1); Sodium 135 mmol/L (137-145); Total Protein 7.7 g/dL (6.3-8.2); Triglycerides 362 mg/dL (35-150)
[2023-02-21 09:10] LABS: LDL Cholesterol Direct 81 mg/dL (<100)
[2023-02-21 09:28] LABS: Prostate Specific Antigen Scrn 0.881 ng/mL (0.1-4.0)
== END ==
PROVIDERS: PCP Internal Medicine; Referring Provider Internal Medicine; Visit Provider Internal Medicine
DX: D68.51 Activated protein C resistance (principal); E78.2 Mixed hyperlipidemia; I10 Essential (primary) hypertension; Z79.01 Long term (current) use of anticoagulants; Z12.5 Encounter for screening for malignant neoplasm of prostate
CPT/HCPCS: 36415; 80053; 80061; 83721; 85025; 85610; G0103

== ENCOUNTER → 2023-03-04 14:41 | Outpatient (CLI) | payer OTHER, SELFPAY ==
[2023-03-05 10:45] LABS: Fecal Immunochemical Test Negative (Negative)
== END ==
PROVIDERS: PCP Internal Medicine; Referring Provider Internal Medicine; Visit Provider Internal Medicine
DX: D68.51 Activated protein C resistance (principal); Z79.01 Long term (current) use of anticoagulants
CPT/HCPCS: 82274

== ENCOUNTER → 2023-08-14 14:23 | Outpatient (CLI) | payer OTHER, SELFPAY ==
[2023-08-14 15:10] LABS: INR 2.8 (0.9-1.3); Prothrombin Time 32.3 SECONDS (9.4-12.5)
== END ==
PROVIDERS: PCP Internal Medicine; Referring Provider Internal Medicine; Visit Provider Internal Medicine
DX: I82.409 Acute embolism and thrombosis of unspecified deep veins of unspecified lower extremity (principal)
CPT/HCPCS: 36415; 85610

== ENCOUNTER → 2023-09-15 14:42 | Outpatient (CLI) | payer OTHER, SELFPAY ==
[2023-09-15 15:17] LABS: INR 2.5 (0.9-1.3); Prothrombin Time 28.5 SECONDS (9.4-12.5)
== END ==
PROVIDERS: PCP Internal Medicine; Referring Provider Internal Medicine; Visit Provider Internal Medicine
DX: I82.409 Acute embolism and thrombosis of unspecified deep veins of unspecified lower extremity (principal)
CPT/HCPCS: 36415; 85610

== ENCOUNTER → 2023-10-27 14:39 | Outpatient (CLI) | payer OTHER, SELFPAY ==
[2023-10-27 15:23] LABS: INR 1.8 (0.9-1.3); Prothrombin Time 21.1 SECONDS (9.4-12.5)
== END ==
PROVIDERS: PCP Internal Medicine; Referring Provider Internal Medicine; Visit Provider Internal Medicine
DX: Z79.01 Long term (current) use of anticoagulants (principal)
CPT/HCPCS: 36415; 85610

== ENCOUNTER → 2024-06-14 07:03 | Outpatient (CLI) | payer OTHER, SELFPAY ==
[2024-06-14 08:08] LABS: Hemoglobin A1C% w Est Avg Glu 5.1 % (4.0-6.0)
[2024-06-14 08:12] LABS: INR 1.8 (0.9-1.3); Prothrombin Time 19.7 SECONDS (9.4-12.5)
[2024-06-14 08:18] LABS: Alanine Aminotransferase 41 IU/L (<50); Albumin 4.3 g/dL (3.5-5.0); Albumin Globulin Ratio 1.5 (1.0-2.8); Alkaline Phosphatase 70 U/L (38-126); Aspartate Aminotransferase 44 IU/L (17-59); BUN Creatinine Ratio 14.1 (6-22); Bilirubin Total 1.1 mg/dL (0.2-1.3); Blood Urea Nitrogen 13 mg/dL (9-20); Calcium 9.7 mg/dL (8.4-10.2); Carbon Dioxide 27 mmol/L (22-32); Chloride 103 mmol/L (98-107); Cholesterol 154 mg/dL (140-199); Estimated Glomerular Filt Rate > 60 mL/min (>60); Globulin 2.9 g/dL (1.7-4.1); Glucose 115 mg/dL (80-110); HDL Cholesterol 37 mg/dL (40-60); HEMOLYSIS < 15 (0-50); LDL Cholesterol Calculated 90 mg/dL (<100); Sodium 137 mmol/L (137-145); Total Protein 7.2 g/dL (6.3-8.2); Triglycerides 137 mg/dL (35-150)
[2024-06-14 09:59] LABS: Ur Creatinine Normal (Normal); Ur Specific Gravity Normal (Normal)
[2024-06-14 10:00] LABS: UR Morphine/Opiate cutoff 300 Negative (Negative); Urine Amphetamines Positive (Negative); Urine Barbiturates Negative (Negative); Urine Benzodiazepines Negative (Negative); Urine Cocaine Negative (Negative); Urine MDMA Negative (Negative); Urine Methadone Negative (Negative); Urine Methamphetamines Negative (Negative); Urine Oxycodone Negative (Negative); Urine Phencyclidine Negative (Negative); Urine Tetrahydrocannabinol Negative (Negative); Urine Tricyclic Antidepressant Negative (Negative); Urine pH Normal (Normal)
[2024-06-14 16:20] LABS: HIV 1 & 2 Ab/Ag 4th Gen Combo NEGATIVE (NEGATIVE); Hep C Virus Ab w/Reflex Quant NEGATIVE s/c (NEGATIVE)
== END ==
PROVIDERS: PCP Family Medicine; Referring Provider Family Medicine; Visit Provider Family Medicine
DX: Z51.81 Encounter for therapeutic drug level monitoring (principal); I10 Essential (primary) hypertension; F90.9 Attention-deficit hyperactivity disorder, unspecified type; E78.2 Mixed hyperlipidemia; E66.9 Obesity, unspecified; D68.51 Activated protein C resistance; Z79.01 Long term (current) use of anticoagulants; Z86.711 Personal history of pulmonary embolism
CPT/HCPCS: 36415; 80053; 80061; 80305; 83036; 85610; 86803; 87389

== ENCOUNTER → 2025-06-10 07:04 | Outpatient (CLI) | payer OTHER, SELFPAY ==
[2025-06-10 07:35] LABS: Add Manual Diff / Slide Review NO; Hematocrit 37.4 % (41-53); Hemoglobin 13.1 g/dL (13.5-17.5); Lymphocytes Absolute Auto 1300 /uL (1100-4500); Mean Corpuscular HGB Conc 35.0 % (30-36); Mean Corpuscular Hemoglobin 33.1 PG (26-34); Mean Corpuscular Volume 94.4 fL (80-100); Platelet Count 262 X10^3/uL (150-400)
[2025-06-10 08:02] LABS: Alanine Aminotransferase 28 IU/L (<50); Albumin 4.6 g/dL (3.5-5.0); Albumin Globulin Ratio 1.6 (1.0-2.8); Alkaline Phosphatase 61 U/L (38-126); Blood Urea Nitrogen 14 mg/dL (9-20); Calcium 9.7 mg/dL (8.4-10.2); Carbon Dioxide 26 mmol/L (22-32); Chloride 102 mmol/L (98-107); Cholesterol 118 mg/dL (140-199); Estimated Glomerular Filt Rate > 60 mL/min (>60); Globulin 2.9 g/dL (1.7-4.1); Glucose 108 mg/dL (70-99); HDL Cholesterol 39 mg/dL (40-60); HEMOLYSIS < 15 (0-50); Potassium 3.8 mmol/L (3.4-5.1); Sodium 138 mmol/L (137-145); Total Protein 7.5 g/dL (6.3-8.2); Triglycerides 126 mg/dL (35-150)
[2025-06-10 08:32] LABS: TSH w/ Reflex to FT4 2.70 uIU/mL (0.47-4.68)
[2025-06-10 08:51] LABS: Vitamin B12 551 pg/mL (239-931)
== END ==
PROVIDERS: PCP Family Medicine; Referring Provider Family Medicine; Visit Provider Family Medicine
DX: Z12.5 Encounter for screening for malignant neoplasm of prostate (principal); I10 Essential (primary) hypertension; E78.2 Mixed hyperlipidemia; E66.9 Obesity, unspecified; R41.3 Other amnesia; F41.1 Generalized anxiety disorder
CPT/HCPCS: 36415; 80053; 80061; 82607; 84443; 85025; G0103